=== PATIENT | female | born 1995 | race Caucasian/White ===

== ENCOUNTER 2016-12-02 19:55 | Outpatient (CLI) | payer OTHER ==
[~2016-12-02 19:55] MED LIST: COLACE 100MG C100 MG PO; IBUPROFEN600 MG PO; NORCO 5-325 TA1 EACH PO
== END 2016-12-02 22:46 | disposition home or self-care (01) ==
LOC: ER1 19:55 → GENOP 19:55
DX: O60.02 Preterm labor without delivery, second trimester (principal); Z3A.24 24 weeks gestation of pregnancy
CPT/HCPCS: G0463; J0702

== ENCOUNTER 2020-10-18 17:52 | Emergency (ER) | payer OTHER | END 2020-10-18 22:00 | disposition home or self-care (01) | LOC: ER1 17:52 | DX: R51.9 Headache, unspecified (principal); M54.5 Low back pain; V49.40XA Driver injured in collision with unspecified motor vehicles in traffic accident, initial encounter; Y92.410 Unspecified street and highway as the place of occurrence of the external cause | CPT/HCPCS: 70450; 72100; 72125; 84703; 99284 ==